=== PATIENT | male | born 1975 ===

== ENCOUNTER 2018-01-11 13:24 | Observation (INO) | payer OTHER ==
[2018-01-11] MEDS ORDERED: DiphenhydrAMINE 50 mg/ml Inj IVP STA (14:06)
--- NOTE | 2018-01-11 14:24 | RAD ---
Date of service: 01/11/2018 HISTORY: chest pain COMPARISON: No prior. TECHNIQUE: Chest PA and lateral FINDINGS: LUNGS: No active pulmonary disease. PLEURA: No significant pleural effusion identified. No pneumothorax apparent. CARDIOVASCULAR: Normal. OSSEOUS STRUCTURES: No significant abnormalities. VISUALIZED UPPER ABDOMEN: Normal. OTHER FINDINGS: None. IMPRESSION: No active disease.
[2018-01-11] MEDS ORDERED: DiphenhydrAMINE 50 mg/ml Inj ONE (14:37)
[2018-01-11 14:43] LABS: BASO % 0.5 % (0.0-2.0); LYMPH # 1.3 K/uL (1.0-4.3); LYMPH % 32.5 % (20.0-40.0); MEAN CELL VOLUME 94.4 fl (80.0-94.0); MEAN CORPUSCULAR HEMOGLOBIN 33.1 pg (27.0-31.0); MEAN PLATELET VOLUME 7.5 fl (7.2-11.7); MONO # 0.4 K/uL (0.0-0.8); NEUT # 2.3 K/uL (1.8-7.0); RBC 4.85 Mil/uL (4.40-5.90); RED CELL DISTRIBUTION WIDTH 12.5 % (11.5-14.5); WHITE BLOOD COUNT 4.1 K/uL (4.8-10.8)
[2018-01-11] MEDS: Sodium Chloride 0.9% 1,000 ML IV SCH ×6 (14:45→22:29)
[2018-01-11 14:51] LABS: INR 1.1; PROTHROMBIN TIME 11.9 Seconds (9.8-13.1)
[2018-01-11 14:54] LABS: PARTIAL THROMBOPLASTIN TIME 34.5 Seconds (25.6-37.1)
[2018-01-11 14:56] LABS: ALB/GLOB RATIO 0.9 (1.0-2.1); ALBUMIN 4.1 g/dL (3.5-5.0); ALT/SGPT 124 U/L (21-72); AST/SGOT 184 U/L (17-59); BLOOD UREA NITROGEN 10 mg/dl (9-20); CALCIUM 7.8 mg/dL (8.4-10.2); GFR NON-AFRICAN AMERICAN > 60; LIPASE 115 U/L (23-300)
--- NOTE | 2018-01-11 15:24 | ED PDOC ---
HPI: Chest Pain Time Seen by Provider: 01/11/18 13:40 Chief Complaint (Nursing): Chest Pain Chief Complaint (Provider): Chest Pain History Per: Patient History/Exam Limitations: no limitations Onset/Duration Of Symptoms: Days (x 1) Current Symptoms Are (Timing): Still Present Quality: Burning, "Pain" Additional Complaint(s): 42 year old male presents to the ED for evaluation of mid sternal burning chest pain, epigastric abdominal pain and persistent hiccups since last night. Patient reports he has been drinking heavily for 2 weeks straight on a daily basis and does not give a specific reason why. His last drink was 2 shots of tequila this morning. A family member found him intoxicated in his home prompting a visit to the ED. He had two episodes of nb nb vomiting prior to arrival. Denies fever, travel, chills, cough/SOB, headache/dizziness, urinary symptoms, and diarrhea. PMD: Dr. Aleman Past Medical History Reviewed: Historical Data, Nursing Documentation, Vital Signs Vital Signs: Last Vital Signs Temp 97.8 F 01/11/18 13:34 Pulse 110 H 01/11/18 13:34 Resp 22 01/11/18 13:34 BP 137/75 01/11/18 13:34 Pulse Ox 100 01/11/18 13:34 - Medical History PMH: HTN (patient denies) - Surgical History Surgical History: No Surg Hx - Family History Family History: States: Unknown Family Hx - Social History Alcohol: > 2 Drinks/Day Drugs: Denies - Home Medications Home Medications: Ambulatory Orders Medication Instructions Recorded RX: Metoprolol Tartrate [Lopressor] 12.5 mg PO BID #28 tab 08/20/14 RX: Omeprazole 40 mg PO DAILY #30 ecc 08/20/14 Dicyclomine [Bentyl] 10 mg PO QID #30 cap 11/09/17 Famotidine [Pepcid] 20 mg PO BID #30 tab 11/09/17 Sucralfate [Carafate] 1 gm PO BID #20 tab 11/09/17 - Allergies Allergies/Adverse Reactions: Allergies Allergy/AdvReac Type Severity Reaction Status Date / Time No Known Allergies Allergy Verified 11/08/17 20:11 Review of Systems ROS Statement: Except As Marked, All Systems Reviewed And Found Negative Constitutional: Negative for: Fever, Chills ENT: Positive for: Other (persistent hiccups) Cardiovascular: Positive for: Chest Pain Respiratory: Negative for: Cough Gastrointestinal: Positive for: Vomiting (x 2 episode nbnb), Abdominal Pain. Negative for: Diarrhea Physical Exam - Reviewed Nursing Documentation Reviewed: Yes Vital Signs Reviewed: Yes - Physical Exam Comments: GENERAL APPEARANCE: Patient is awake, alert, oriented x 3, in no acute distress, odor of alcohol on breath. SKIN: Warm, dry; (-) cyanosis. EYES: (+) bilateral conjunctival injection. ENMT: Mucous membranes moist. Airway patent, (-) stridor. NECK: Supple, FROM (-) tenderness, (-) stiffness CHEST AND RESPIRATORY: (-) rash, (-) chest wall tenderness. Lungs: (-) rales, (-) rhonchi, (-) wheezes, (-) rub; breath sounds equal bilaterally. Respirations even and nonlabored. HEART AND CARDIOVASCULAR: (-) irregularity ABDOMEN AND GI: Soft; (+) RUQ, LUQ and epigastric tenderness,(-) distention, (- ) guarding. EXTREMITIES: (-) deformity; (-) edema, (-) calf tenderness. (+) distal pulses. NEURO AND PSYCH: Mental status as above. Slurred speech. EOMI. (-) facial asymmetry (-) aphasia - Laboratory Results Result Diagrams: 01/11/18 14:40 01/11/18 14:40 - ECG ECG: Positive for: Interpreted By Me, Viewed By Me ECG Rhythm: Positive for: Sinus Tachycardia Interpretation Of ECG: No ST elevation; QTC 458 Rate: 116 O2 Sat by Pulse Oximetry: 100 (RA) Pulse Ox Interpretation: Normal Medical Decision Making Medical Decision Makin:00 Impression: alcohol intoxication and abuse, abdominal pain, vomiting, and hiccups Initial Plan: --VBG --EKG --Alcohol --CMP --CDC --PTT/ INR --UDS --Lipase --Troponin --Urine dip --NS IV --Benadryl 50 mg IVP --Pantoprazole 40 mg IVP --Thorazine 50 mg PO --Toradol 30 mg IVP --Zofran 4 mg IVP 1615 Labs reviewed. CBC grossly unremarkable. No leukocytosis. H&H stable. CMP with slight elevation of LFTs, likely alcohol induced. Troponin and Lipase WNL. Serum Alcohol: 272 Coag profile unremarkable. On re-evaluation, patient sleeping comfortably. HR on monitor: 82. 1730 Lactate: 2.8 on VBG Case discussed with ED MD Levi who is agreeable to current management. Pending clinical sobriety. Patient sleeping in ED stretcher. No distress noted. Vitals stable on monitor. Utox negative. 1845 Repeat HR: 89 Repeat troponin ordered due to patient reporting persistent chest discomfort. Patient still unsteady in ED secondary to ETOH intoxication. Hiccups and nausea resolved. 191 Patient sleeping comfortably in ED. Vitals stable on monitor. 1999 Case endorsed to Che Bright PA-C. Patient pending re-evaluation/repeat troponin, clinical sobriety, final disposition. -- Scribe Attestation: Documented by Mandy Lopez, acting as a scribe for Mac Mcdowell PA-C Provider Scribe Attestation: All medical record entries made by the Scribe were at my direction and pers onally dictated by me. I have reviewed the chart and agree that the record accurately reflects my personal performance of the history, physical exam, medical decision making, and the department course for this patient. I have also personally directed, reviewed, and agree with the discharge instructions and disposition. Disposition - Clinical Impression Clinical Impression: Chest pain, Nausea and vomiting, Abdominal pain, Alcohol intoxication - Patient ED Disposition Is Patient to be Admitted: Transfer of Care (Che Bright PA-C at 1999) - Disposition Disposition: Transfer of Care (Che Bright PA-C at 1999 pending sobriety, repeat troponin, and final disposition.) Disposition Time: 20:00 Condition: STABLE - POA Present On Arrival: None Results - Lab Results Lab Results: 01/11/18 01/11/18 01/11/18 16:36 16:12 14:40 WBC RBC Hgb Hct MCV MCH MCHC RDW Plt Count MPV Neut % (Auto) Lymph % (Auto) [place] % (Auto) Eos % (Auto) Baso % (Auto) Neut # (Auto) Lymph # (Auto) [place] # (Auto) Eos # (Auto) Baso # (Auto) PT 11.9 INR 1.1 APTT 34.5 pO2 52 VBG pH 7.38 VBG pCO2 46 VBG HCO3 25.8 VBG Total CO2 28.6 H VBG O2 Sat (Calc) 87.7 H VBG Base Excess 1.5 VBG Potassium 3.5 L Glucose 95 Lactate 2.8 H FiO2 21.0 Blood Gas Comments Lac=2.8 Crit Value Called To mac Roberson Crit Value Called By 22 Crit Value Read Back Y Blood Gas Notified Time 1645 Sodium 148.0 Potassium Chloride 99.0 Carbon Dioxide Anion Gap BUN Creatinine Est GFR ( Amer) Est GFR (Non-Af Amer) Random Glucose Calcium Total Bilirubin AST ALT Alkaline Phosphatase Troponin I Total Protein Albumin Globulin Albumin/Globulin Ratio Lipase Venous Blood Potassium 3.5 L Urine Opiates Screen Negative Urine Methadone Screen Negative Ur Barbiturates Screen Negative Ur Phencyclidine Scrn Negative Ur Amphetamines Screen Negative U Benzodiazepines Scrn Negative U Oth Cocaine Metabols Negative U Cannabinoids Screen Negative Alcohol, Quantitative 01/11/18 01/11/18 14:40 14:40 WBC 4.1 L RBC 4.85 Hgb 16.0 Hct 45.8 MCV 94.4 H MCH 33.1 H MCHC 35.0 RDW 12.5 Plt Count 89 L MPV 7.5 Neut % (Auto) 57.0 Lymph % (Auto) 32.5 [place] % (Auto) 10.0 Eos % (Auto) 0.0 Baso % (Auto) 0.5 Neut # (Auto) 2.3 Lymph # (Auto) 1.3 [place] # (Auto) 0.4 Eos # (Auto) 0.0 Baso # (Auto) 0.0 PT INR APTT pO2 VBG pH VBG pCO2 VBG HCO3 VBG Total CO2 VBG O2 Sat (Calc) VBG Base Excess VBG Potassium Glucose Lactate FiO2 Blood Gas Comments Crit Value Called To Crit Value Called By Crit Value Read Back Blood Gas Notified Time Sodium 144 Potassium 3.6 Chloride 103 Carbon Dioxide 27 Anion Gap 18 BUN 10 Creatinine 0.5 L Est GFR ( Amer) > 60 Est GFR (Non-Af Amer) > 60 Random Glucose 115 H Calcium 7.8 L Total Bilirubin 0.8 AST 184 H D ALT 124 H Alkaline Phosphatase 125 Troponin I < 0.0120 Total Protein 8.5 H Albumin 4.1 Globulin 4.4 H Albumin/Globulin Ratio 0.9 L Lipase 115 Venous Blood Potassium Urine Opiates Screen Urine Methadone Screen Ur Barbiturates Screen Ur Phencyclidine Scrn Ur Amphetamines Screen U Benzodiazepines Scrn U Oth Cocaine Metabols U Cannabinoids Screen Alcohol, Quantitative 272 H
[2018-01-11 16:35] LABS: BARBITURATES, UR NEGATIVE (NEGATIVE)
[2018-01-11 16:41] LABS: BENZODIAZEPINES, UR NEGATIVE (NEGATIVE); OPIATES, UR NEGATIVE (NEGATIVE); PHENCYCLIDINE, UR NEGATIVE (NEGATIVE)
[2018-01-11 16:46] LABS: VENOUS BLOOD GAS BASE EXCESS 1.5 mmol/L (0.0-2.0); VENOUS BLOOD GAS PCO2 46 mmHg (40-60); VENOUS BLOOD GAS PO2 52 mm/Hg (30-55); VENOUS BLOOD PH 7.38 (7.32-7.43)
--- NOTE | 2018-01-11 18:30 | CARD ---
APPROVED REPORT Date of service: 01/11/2018 EKG Measurement Heart [id number] <Conclusion> Sinus tachycardia Otherwise normal ECG
[2018-01-11] MEDS ORDERED: Sodium Chloride 0.9% 1,000 ML IV STA (21:36)
[2018-01-11] MEDS ORDERED: Multivitamin (MVI) 10 ML, Thiamine 100 MG, Folic Acid 1 MG in Sodium Chloride 0.9% 1,00... IV ONE (21:38)
--- NOTE | 2018-01-11 22:17 | ED PDOC ---
- Laboratory Results Result Diagrams: 01/11/18 14:40 01/11/18 14:40 - ECG O2 Sat by Pulse Oximetry: 99 - Progress ED Course And Treament: patient states he feels persistently unwell with burning sensation to throat. No vomiting noted. Bananabag ordered; ativan 1 mg iv x 1 dose; zofran 4 mg iv x 1 dose REPEAT LACTATE NOTED ELEVATED 3.6 CT ABDOMEN/PELVIS ORDERED: NEG FOR ACUTE ABNORMALITY NS 1 LITER WIDE OPEN REPEAT LACTATE NOTED PERSISTENT 3.6 PATIENT TO BE ADMITTED FOR OBSERVATION FOR LACTID ACIDOSIS/DEHYDRATION Disposition - Clinical Impression Clinical Impression: Chest pain, Nausea and vomiting, Abdominal pain, Alcohol intoxication - POA Present On Arrival: None - Disposition Disposition: Hospitalized as Observation Patient Disposition Time: 03:58 Condition: STABLE
[2018-01-12] MEDS: Sodium Chloride 0.9% 1,000 ML IV SCH ×2 (00:04→16:52)
[2018-01-12 00:11] LABS: VENOUS BLOOD GAS BASE EXCESS -1.3 mmol/L (0.0-2.0); VENOUS BLOOD GAS PCO2 46 mmHg (40-60); VENOUS BLOOD GAS PO2 42 mm/Hg (30-55); VENOUS BLOOD PH 7.34 (7.32-7.43)
[2018-01-12] MEDS ORDERED: Iohexol 300 100 ML IJ ONE (01:28)
[2018-01-12] MEDS ORDERED: Sodium Chloride 0.9% 50 ML IV ONE (01:28)
[2018-01-12] MEDS ORDERED: Sodium Chloride 0.9% 1,000 ML IV STA (02:42)
[2018-01-12 03:06] LABS: VENOUS BLOOD GAS BASE EXCESS 0.8 mmol/L (0.0-2.0); VENOUS BLOOD GAS PCO2 46 mmHg (40-60); VENOUS BLOOD GAS PO2 25 mm/Hg (30-55); VENOUS BLOOD PH 7.37 (7.32-7.43)
[2018-01-12 05:12] LABS: URINE BILIRUBIN NEGATIVE (NEGATIVE); URINE BLOOD NEGATIVE (NEGATIVE); URINE CLARITY CLEAR (Clear); URINE COLOR YELLOW (YELLOW); URINE GLUCOSE (UA) NEG (Normal); URINE LEUKOCYTE ESTERASE NEG Leu/uL (Negative); URINE PROTEIN 30 mg/dL (NEGATIVE); URINE UROBILINOGEN 0.2-1.0 mg/dL (0.2-1.0)
--- NOTE | 2018-01-12 06:34 | CP.PCM.HP ---
History of Present Illness - History of Present Illness History of Present Illness: CC: Epigastric pain, EtOH intoxication HPI: 42 y/o man w/ pmh of alcohol gastritis and HTN presents to the ED w/ burning epigastric pain. Patient unsure when pain started because he reports drinking 1-2 bottles of tequila everyday for the past 2 weeks. Patient reports last drink was 1-2 days ago. Patient reports drinking alone at home and reports that he just started drinking heavily 2 Saturdays ago. Patient denies any changes in life or new stressors. Patient reports associated tension headache, dizziness, acid reflux, nausea, vomiting (x2 non-bloody/non-bilious) but denies diarrhea, dysuria, or fever. Patient denies tactile, auditory, or visual hallucinations. Patient reports prior to 2 weeks ago, he went many months without drinking. Patient has previous admission at [facility] for alcohol intoxication. ED course: vitals: 98 F, 87 beats/min, 123/89 mm Hg, resp 18, O2 99% room air CBC: 4.1>16.0/45.8<89 coags: PT 11.9, INR 1.1, aPTT 34.5 CMP: 144/3.6, 103/27, 10/0.5, glucose 115, AST 184, ALT 124, alk phos 125 troponin: x2 negative VBG: pO2 25, pH 7.37, pCO2 46, HCO3 24.1, lactate 3.6 IVF NS bolus IVF NS @ 500 mL/hr [id number] mg PO once benadryl 50 mg IVP once pepcid 20 mg IV once toradol 30 mg IV once ativan 1 mg IV once zofran 4 mg IV once zofran 4 mg IV once protonix 40 mg IV once PMD: Dr. Aleman PMH: alcohol gastritis and HTN meds: see med list PSH: none Fam: denies SOC: denies smoking and drugs, has Hx of heavy drinking ROS: 12 points assessed and positive findings as stated above in HPI Present on Admission - Present on Admission Any Indicators Present on Admission: No History of DVT/PE: No History of Uncontrolled Diabetes: No Urinary Catheter: No Decubitus Ulcer Present: No Review of Systems - Review of Systems All systems: reviewed and no additional remarkable complaints except - Constitutional Constitutional: Headache. absent: Chills, Fever - EENT Eyes: absent: Change in Vision - Cardiovascular Cardiovascular: As Per HPI, Chest Pain - Respiratory Respiratory: absent: Dyspnea - Gastrointestinal Gastrointestinal: Abdominal Pain, Nausea, Vomiting. absent: Diarrhea, Hematemesis - Genitourinary Genitourinary: absent: Dysuria - Integumentary Integumentary: absent: Rash - Neurological Neurological: Dizziness, Headaches Past Patient History - Infectious Disease Hx of Infectious Diseases: None - Past Medical History & Family History Past Medical History?: Yes - Past Social History Smoking Status: Never Smoked - CARDIAC Hx Hypertension: Yes (not sure) - PULMONARY Hx Respiratory Disorders: No - NEUROLOGICAL Hx Neurological Disorder: No - HEENT Hx HEENT Problems: No - RENAL Hx Chronic Kidney Disease: No - ENDOCRINE/METABOLIC Hx Endocrine Disorders: No - HEMATOLOGICAL/ONCOLOGICAL Hx Blood Disorders: No - INTEGUMENTARY Hx Dermatological Problems: No - MUSCULOSKELETAL/RHEUMATOLOGICAL Hx Musculoskeletal Disorders: No Hx Falls: No - GASTROINTESTINAL Hx Gastrointestinal Disorders: No - GENITOURINARY/GYNECOLOGICAL Hx Genitourinary Disorders: No - PSYCHIATRIC Hx Psychophysiologic Disorder: No Hx Substance Use: No (denies) Other/Comment: DRINKS ALCOHOL - SURGICAL HISTORY Hx Surgeries: Yes Other/Comment: S/P COLONOSCOPY - ANESTHESIA Hx Anesthesia: Yes Hx Anesthesia Reactions: No Hx Malignant Hyperthermia: No Meds Allergies/Adverse Reactions: Allergies Allergy/AdvReac Type Severity Reaction Status Date / Time No Known Allergies Allergy Verified 11/08/17 20:11 Physical Exam - Constitutional Appears: Non-toxic, No Acute Distress - Head Exam Head Exam: ATRAUMATIC, NORMAL INSPECTION, NORMOCEPHALIC - Eye Exam Eye Exam: Normal appearance - ENT Exam ENT Exam: Mucous Membranes Dry - Neck Exam Neck exam: Positive for: Full Rom. Negative for: Tenderness - Respiratory Exam Respiratory Exam: Clear to Auscultation Bilateral. absent: Accessory Muscle Use, Decreased Breath Sounds, Rales, Rhonchi, Wheezes, Respiratory Distress - Cardiovascular Exam Cardiovascular Exam: REGULAR RHYTHM, RRR. absent: Tachycardia - GI/Abdominal Exam GI & Abdominal Exam: Normal Bowel Sounds, Soft, Tenderness (epigastric). absent: Distended - Extremities Exam Extremities exam: Negative for: calf tenderness, pedal edema, tenderness - Neurological Exam Neurological exam: Alert, Oriented x3 - Skin Skin Exam: Dry, Intact, Normal Color, Warm Results - Vital Signs Recent Vital Signs: Last Vital Signs Temp 98 F 01/11/18 22:30 Pulse 87 09/28/18 22:30 Resp 18 01/11/18 22:30 BP 123/89 01/11/18 22:30 Pulse Ox 99 01/12/18 04:14 - Labs Result Diagrams: 01/11/18 14:40 01/11/18 14:40 Labs: Laboratory Results - last 24 hr 01/11/18 01/11/18 01/11/18 14:40 14:40 14:40 WBC 4.1 L RBC 4.85 Hgb 16.0 Hct 45.8 MCV 94.4 H MCH 33.1 H MCHC 35.0 RDW 12.5 Plt Count 89 L MPV 7.5 Neut % (Auto) 57.0 Lymph % (Auto) 32.5 [place] % (Auto) 10.0 Eos % (Auto) 0.0 Baso % (Auto) 0.5 Neut # (Auto) 2.3 Lymph # (Auto) 1.3 [place] # (Auto) 0.4 Eos # (Auto) 0.0 Baso # (Auto) 0.0 PT 11.9 INR 1.1 APTT 34.5 pO2 VBG pH VBG pCO2 VBG HCO3 VBG Total CO2 VBG O2 Sat (Calc) VBG Base Excess VBG Potassium Glucose Lactate FiO2 Blood Gas Comments Crit Value Called To Crit Value Called By Crit Value Read Back Blood Gas Notified Time Sodium 144 Potassium 3.6 Chloride 103 Carbon Dioxide 27 Anion Gap 18 BUN 10 Creatinine 0.5 L Est GFR ( Amer) > 60 Est GFR (Non-Af Amer) > 60 Random Glucose 115 H Calcium 7.8 L Magnesium Total Bilirubin 0.8 AST 184 H D ALT 124 H Alkaline Phosphatase 125 Troponin I < 0.0120 Total Protein 8.5 H Albumin 4.1 Globulin 4.4 H Albumin/Globulin Ratio 0.9 L Lipase 115 Venous Blood Potassium Urine Color Urine Clarity Urine pH Ur Specific [place] Urine Protein Urine Glucose (UA) Urine Ketones Urine Blood Urine Nitrate Urine Bilirubin Urine Urobilinogen Ur Leukocyte Esterase Urine RBC (Auto) Urine Microscopic WBC Hyaline Casts Urine Opiates Screen Urine Methadone Screen Ur Barbiturates Screen Ur Phencyclidine Scrn Ur Amphetamines Screen U Benzodiazepines Scrn U Oth Cocaine Metabols U Cannabinoids Screen Alcohol, Quantitative 272 H 09/28/18 09/28/18 09/28/18 16:12 16:36 20:11 WBC RBC Hgb Hct MCV MCH MCHC RDW Plt Count MPV Neut % (Auto) Lymph % (Auto) [place] % (Auto) Eos % (Auto) Baso % (Auto) Neut # (Auto) Lymph # (Auto) [place] # (Auto) Eos # (Auto) Baso # (Auto) PT INR APTT pO2 52 VBG pH 7.38 VBG pCO2 46 VBG HCO3 25.8 VBG Total CO2 28.6 H VBG O2 Sat (Calc) 87.7 H VBG Base Excess 1.5 VBG Potassium 3.5 L Glucose 95 Lactate 2.8 H FiO2 21.0 Blood Gas Comments Lac=2.8 Crit Value Called To Rpa.mac mccormick Crit Value Called By 22 Crit Value Read Back Y Blood Gas Notified Time 1645 Sodium 148.0 Potassium Chloride 99.0 Carbon Dioxide Anion Gap BUN Creatinine Est GFR ( Amer) Est GFR (Non-Af Amer) Random Glucose Calcium Magnesium Total Bilirubin AST ALT Alkaline Phosphatase Troponin I < 0.0120 Total Protein Albumin Globulin Albumin/Globulin Ratio Lipase Venous Blood Potassium 3.5 L Urine Color Urine Clarity Urine pH Ur Specific [place] Urine Protein Urine Glucose (UA) Urine Ketones Urine Blood Urine Nitrate Urine Bilirubin Urine Urobilinogen Ur Leukocyte Esterase Urine RBC (Auto) Urine Microscopic WBC Hyaline Casts Urine Opiates Screen Negative Urine Methadone Screen Negative Ur Barbiturates Screen Negative Ur Phencyclidine Scrn Negative Ur Amphetamines Screen Negative U Benzodiazepines Scrn Negative U Oth Cocaine Metabols Negative U Cannabinoids Screen Negative Alcohol, Quantitative 01/12/18 01/12/18 01/12/18 00:02 00:04 03:00 WBC RBC Hgb Hct MCV MCH MCHC RDW Plt Count MPV Neut % (Auto) Lymph % (Auto) [place] % (Auto) Eos % (Auto) Baso % (Auto) Neut # (Auto) Lymph # (Auto) [place] # (Auto) Eos # (Auto) Baso # (Auto) PT INR APTT pO2 42 25 L VBG pH 7.34 7.37 VBG pCO2 46 46 VBG HCO3 23.3 24.1 VBG Total CO2 26.2 28.0 VBG O2 Sat (Calc) 43.1 VBG Base Excess -1.3 L 0.8 VBG Potassium 3.7 3.3 L Glucose 97 83 Lactate 3.6 H 3.6 H FiO2 21.0 21.0 Blood Gas Comments Crit Value Called To Crit Value Called By Crit Value Read Back Blood Gas Notified Time Sodium 146.0 140.0 Potassium Chloride 97.0 L 101.0 Carbon Dioxide Anion Gap BUN Creatinine Est GFR ( Amer) Est GFR (Non-Af Amer) Random Glucose Calcium Magnesium 1.6 Total Bilirubin AST ALT Alkaline Phosphatase Troponin I Total Protein Albumin Globulin Albumin/Globulin Ratio Lipase Venous Blood Potassium 3.7 3.3 L Urine Color Urine Clarity Urine pH Ur Specific [place] Urine Protein Urine Glucose (UA) Urine Ketones Urine Blood Urine Nitrate Urine Bilirubin Urine Urobilinogen Ur Leukocyte Esterase Urine RBC (Auto) Urine Microscopic WBC Hyaline Casts Urine Opiates Screen Urine Methadone Screen Ur Barbiturates Screen Ur Phencyclidine Scrn Ur Amphetamines Screen U Benzodiazepines Scrn U Oth Cocaine Metabols U Cannabinoids Screen Alcohol, Quantitative 01/12/18 04:56 WBC RBC Hgb Hct MCV MCH MCHC RDW Plt Count MPV Neut % (Auto) Lymph % (Auto) [place] % (Auto) Eos % (Auto) Baso % (Auto) Neut # (Auto) Lymph # (Auto) [place] # (Auto) Eos # (Auto) Baso # (Auto) PT INR APTT pO2 VBG pH VBG pCO2 VBG HCO3 VBG Total CO2 VBG O2 Sat (Calc) VBG Base Excess VBG Potassium Glucose Lactate FiO2 Blood Gas Comments Crit Value Called To Crit Value Called By Crit Value Read Back Blood Gas Notified Time Sodium Potassium Chloride Carbon Dioxide Anion Gap BUN Creatinine Est GFR ( Amer) Est GFR (Non-Af Amer) Random Glucose Calcium Magnesium Total Bilirubin AST ALT Alkaline Phosphatase Troponin I Total Protein Albumin Globulin Albumin/Globulin Ratio Lipase Venous Blood Potassium Urine Color Yellow Urine Clarity Clear Urine pH 7.0 Ur Specific [place] 1.031 H Urine Protein 30 Urine Glucose (UA) Neg Urine Ketones 20 Urine Blood Negative Urine Nitrate Negative Urine Bilirubin Negative Urine Urobilinogen 0.2-1.0 Ur Leukocyte Esterase Neg Urine RBC (Auto) 2 Urine Microscopic WBC 2 Hyaline Casts 3-5 H Urine Opiates Screen Urine Methadone Screen Ur Barbiturates Screen Ur Phencyclidine Scrn Ur Amphetamines Screen U Benzodiazepines Scrn U Oth Cocaine Metabols U Cannabinoids Screen Alcohol, Quantitative Assessment & Plan - Assessment and Plan (Free Text) Assessment: 42 y/o man w/ pmh of alcohol gastritis and HTN presents to the ED w/ burning epigastric pain Plan: Alcohol Withdrawal - current CIWA score 6 - patient reports last drink was 1-2 days ago - vital signs stable - CBC: 4.1>16.0/45.8<89 - coags: PT 11.9, INR 1.1, aPTT 34.5 - CMP: 144/3.6, 103/27, 10/0.5, glucose 115, AST 184, ALT 124, alk phos 125 - troponin: x2 negative - VBG: pO2 25, pH 7.37, pCO2 46, HCO3 24.1, lactate 3.6 - IVF NS bolus - IVF NS @ 500 mL/hr - mg PO once - benadryl 50 mg IVP once - pepcid 20 mg IV once - toradol 30 mg IV once - ativan 1 mg IV once - zofran 4 mg IV once - zofran 4 mg IV once - protonix 40 mg IV once - EKG: sinus tachycardia - CXR: no active disease - CT abdomen/pelvis: pending - librium 5 mg PO Q8h - D5 1/2NS w/ MV,VitB1, folic acid @ 125 mL/hr - Zofran 4 mg IV Q6h prn - protonix 40 mg PO daily - sucralfate 1 gm PO BID Alcohol Gastritis - Hx of gastritis - Zofran 4 mg IV Q6h prn - protonix 40 mg PO daily - sucralfate 1 gm PO BID HTN - BP stable - lopressor, on hold for now BP stable Prophylactic measures: - DVT: SCDs
[2018-01-12] MEDS ORDERED: Potassium Chloride 20 mEq ER Tab PO ONE ×2 (06:51→07:05)
[2018-01-12] MEDS: Multivitamin (MVI) 10 ML, Thiamine 100 MG, Folic Acid 1 MG in Dextrose 5%/0.45% NS 1,00... IV SCH ×2 (08:18→14:27)
[2018-01-12] MEDS ORDERED: Enoxaparin 40 mg Syringe SC SCH (09:00)
[2018-01-12] MEDS ORDERED: Pantoprazole 40 mg EC Tab PO ONE (09:13)
[2018-01-12] MEDS: Pantoprazole 40 mg EC Tab PO SCH (09:16)
--- NOTE | 2018-01-12 11:24 | CT ---
Date of service: 01/12/2018 PROCEDURE: CT Abdomen and Pelvis with contrast HISTORY: abd pain COMPARISON: None. TECHNIQUE: Contrast dose: 95 mL Omnipaque 300 Radiation dose: Total exam DLP = 936.8 mGy-cm. This CT exam was performed using one or more of the following dose reduction techniques: Automated exposure control, adjustment of the mA and/or kV according to patient size, and/or use of iterative reconstruction technique. FINDINGS: LOWER THORAX: Cardiomegaly. Dependent bibasilar atelectasis. LIVER: Diffuse hepatic steatosis. No gross lesion or ductal dilatation. GALLBLADDER AND BILE DUCTS: Unremarkable. PANCREAS: Unremarkable. No gross lesion or ductal dilatation. SPLEEN: Unremarkable. ADRENALS: Unremarkable. No mass. KIDNEYS AND URETERS: Unremarkable. No hydronephrosis. No solid mass. VASCULATURE: Unremarkable. No aortic aneurysm. BOWEL: Unremarkable. Diffuse submucosal fat in the colon and terminal ileum. No obstruction. No gross mural thickening. APPENDIX: Normal appendix. PERITONEUM: Small fat containing umbilical hernia. Small bilateral fat containing inguinal hernias. No free fluid. No free air. LYMPH NODES: Unremarkable. No enlarged lymph nodes. BLADDER: Unremarkable. REPRODUCTIVE: Unremarkable. BONES: No acute fracture. OTHER FINDINGS: None. IMPRESSION: Hepatomegaly with steatosis. No acute abdominal pelvic pathology. Prominent submucosal fat involving the colon and terminal ileum can be seen in the setting of inflammatory bowel disease. Clinical correlation is recommended.
[2018-01-13] MEDS: Sodium Chloride 0.9% 1,000 ML IV SCH ×2 (01:11→09:16)
[2018-01-13] MEDS ORDERED: Alum-Mag Hydrox-Simethicone Susp (30 mL) PO ONE (04:38)
[2018-01-13 07:08] LABS: HEMOGLOBIN 14.2 g/dL (12.0-18.0); MEAN CELL VOLUME 95.8 fl (80.0-94.0); MEAN CORPUSCULAR HEMOGLOBIN 33.5 pg (27.0-31.0); RBC 4.24 Mil/uL (4.40-5.90); RED CELL DISTRIBUTION WIDTH 12.4 % (11.5-14.5); WHITE BLOOD COUNT 2.6 K/uL (4.8-10.8)
[2018-01-13 08:15] LABS: ALB/GLOB RATIO 0.9 (1.0-2.1); ALBUMIN 3.5 g/dL (3.5-5.0); ALT/SGPT 112 U/L (21-72); AST/SGOT 189 U/L (17-59); BLOOD UREA NITROGEN 6 mg/dl (9-20); GFR NON-AFRICAN AMERICAN > 60
[2018-01-13] MEDS ORDERED: Potassium Chloride 20 mEq ER Tab PO ONE (08:44)
--- NOTE | 2018-01-13 08:46 | CP.PCM.DIS ---
<Yesy Ortiz - Last Filed: 01/13/18 11:10> Provider - Provider Date of Admission: 01/12/18 03:58 Attending physician: Marivel Medrano DO Primary care physician: SHELLIE Time Spent in preparation of Discharge (in minutes): 30 Diagnosis - Discharge Diagnosis (1) Alcohol withdrawal Status: Acute (2) Alcoholic gastritis Status: Acute (3) HTN (hypertension) Status: Acute Hospital Course - Lab Results Lab Results: Most Recent Lab Values WBC 2.6 K/uL (4.8-10.8) L 01/13/18 06:04 RBC 4.24 Mil/uL (4.40-5.90) L 01/13/18 06:04 Hgb 14.2 g/dL (12.0-18.0) 01/13/18 06:04 Hct 40.6 % (35.0-51.0) 01/13/18 06:04 MCV 95.8 fl (80.0-94.0) H 01/13/18 06:04 MCH 33.5 pg (27.0-31.0) H 01/13/18 06:04 MCHC 35.0 g/dL (33.0-37.0) 01/13/18 06:04 RDW 12.4 % (11.5-14.5) 01/13/18 06:04 Plt Count 61 K/uL (130-400) L D 01/13/18 06:04 MPV 7.5 fl (7.2-11.7) 01/11/18 14:40 Neut % (Auto) 57.0 % (50.0-75.0) 01/11/18 14:40 Lymph % (Auto) 32.5 % (20.0-40.0) 01/11/18 14:40 [place] % (Auto) 10.0 % (0.0-10.0) 01/11/18 14:40 Eos % (Auto) 0.0 % (0.0-4.0) 01/11/18 14:40 Baso % (Auto) 0.5 % (0.0-2.0) 01/11/18 14:40 Neut # (Auto) 2.3 K/uL (1.8-7.0) 01/11/18 14:40 Lymph # (Auto) 1.3 K/uL (1.0-4.3) 01/11/18 14:40 [place] # (Auto) 0.4 K/uL (0.0-0.8) 01/11/18 14:40 Eos # (Auto) 0.0 K/uL (0.0-0.7) 01/11/18 14:40 Baso # (Auto) 0.0 K/uL (0.0-0.2) 01/11/18 14:40 PT 11.9 Seconds (9.8-13.1) 01/11/18 14:40 INR 1.1 01/11/18 14:40 APTT 34.5 Seconds (25.6-37.1) 01/11/18 14:40 pO2 25 mm/Hg (30-55) L 01/12/18 03:00 VBG pH 7.37 (7.32-7.43) 01/12/18 03:00 VBG pCO2 46 mmHg (40-60) 01/12/18 03:00 VBG HCO3 24.1 mmol/L 01/12/18 03:00 VBG Total CO2 28.0 mmol/L (22-28) 01/12/18 03:00 VBG O2 Sat (Calc) 43.1 % (40-65) 01/12/18 03:00 VBG Base Excess 0.8 mmol/L (0.0-2.0) 01/12/18 03:00 VBG Potassium 3.3 mmol/L (3.6-5.2) L 01/12/18 03:00 Sodium 140.0 mmol/L (132-148) 01/12/18 03:00 Chloride 101.0 mmol/L (98-107) 01/12/18 03:00 Glucose 83 mg/dL (75-110) 01/12/18 03:00 Lactate 3.6 mmol/L (0.7-2.1) H 01/12/18 03:00 FiO2 21.0 % 01/12/18 03:00 Blood Gas Comments Lac=2.8 01/11/18 16:36 Crit Value Called To mac Roberson 01/11/18 16:36 Crit Value Called By 22 01/11/18 16:36 Crit Value Read Back Y 01/11/18 16:36 Blood Gas Notified Time 1645 01/11/18 16:36 Sodium 139 mmol/l (132-148) 01/13/18 06:04 Potassium 3.1 MMOL/L (3.6-5.0) L 01/13/18 06:04 Chloride 101 mmol/L (98-107) 01/13/18 06:04 Carbon Dioxide 32 mmol/L (22-30) H 01/13/18 06:04 Anion Gap 9 (10-20) L 01/13/18 06:04 BUN 6 mg/dl (9-20) L 01/13/18 06:04 Creatinine 0.6 mg/dl (0.8-1.5) L 01/13/18 06:04 Est GFR ( Amer) > 60 01/13/18 06:04 Est GFR (Non-Af Amer) > 60 01/13/18 06:04 Random Glucose 88 mg/dL (75-110) 01/13/18 06:04 Calcium 8.0 mg/dL (8.4-10.2) L 01/13/18 06:04 Phosphorus 1.9 mg/dl (2.5-4.5) L 01/13/18 06:04 Magnesium 1.7 MG/DL (1.6-2.3) 01/13/18 06:04 Total Bilirubin 1.8 mg/dl (0.2-1.3) H 01/13/18 06:04 AST 189 U/L (17-59) H 01/13/18 06:04 ALT 112 U/L (21-72) H 01/13/18 06:04 Alkaline Phosphatase 97 U/L (38-126) 01/13/18 06:04 Troponin I < 0.0120 ng/mL (0.00-0.120) 01/12/18 11:39 Total Protein 7.3 G/DL (6.3-8.2) 01/13/18 06:04 Albumin 3.5 g/dL (3.5-5.0) 01/13/18 06:04 Globulin 3.9 gm/dL (2.2-3.9) 01/13/18 06:04 Albumin/Globulin Ratio 0.9 (1.0-2.1) L 01/13/18 06:04 Lipase 115 U/L (23-300) 01/11/18 14:40 Venous Blood Potassium 3.3 mmol/L (3.6-5.2) L 01/12/18 03:00 Urine Color Yellow (YELLOW) 01/12/18 04:56 Urine Clarity Clear (Clear) 01/12/18 04:56 Urine pH 7.0 (5.0-8.0) 01/12/18 04:56 Ur Specific [place] 1.031 (1.003-1.030) H 01/12/18 04:56 Urine Protein 30 mg/dL (NEGATIVE) 01/12/18 04:56 Urine Glucose (UA) Neg mg/dL (Normal) 01/12/18 04:56 Urine Ketones 20 mg/dL (NEGATIVE) 01/12/18 04:56 Urine Blood Negative (NEGATIVE) 01/12/18 04:56 Urine Nitrate Negative (NEGATIVE) 01/12/18 04:56 Urine Bilirubin Negative (NEGATIVE) 01/12/18 04:56 Urine Urobilinogen 0.2-1.0 mg/dL (0.2-1.0) 01/12/18 04:56 Ur Leukocyte Esterase Neg [place]/uL (Negative) 01/12/18 04:56 Urine RBC (Auto) 2 /hpf (0-3) 01/12/18 04:56 Urine Microscopic WBC 2 /hpf (0-5) 01/12/18 04:56 Hyaline Casts 3-5 /hpf (0-2) H 01/12/18 04:56 Urine Opiates Screen Negative (NEGATIVE) 01/11/18 16:12 Urine Methadone Screen Negative (NEGATIVE) 01/11/18 16:12 Ur Barbiturates Screen Negative (NEGATIVE) 01/11/18 16:12 Ur Phencyclidine Scrn Negative (NEGATIVE) 01/11/18 16:12 Ur Amphetamines Screen Negative (NEGATIVE) 01/11/18 16:12 U Benzodiazepines Scrn Negative (NEGATIVE) 01/11/18 16:12 U Oth Cocaine Metabols Negative (NEGATIVE) 01/11/18 16:12 U Cannabinoids Screen Negative (NEGATIVE) 01/11/18 16:12 Alcohol, Quantitative 272 mg/dl (0-10) H 01/11/18 14:40 - Hospital Course Hospital Course: 42 y/o man w/ pmh of alcohol gastritis and HTN presents to the ED w/ burning epigastric pain. Patient unsure when pain started because he reports drinking 1-2 bottles of tequila everyday for the past 2 weeks. Patient reports last drink was 1-2 days ago. Patient reports drinking alone at home and reports that he just started drinking heavily 2 Saturdays ago. Patient denies any changes in life or new stressors. Patient reports associated tension headache, dizziness, acid reflux, nausea, vomiting (x2 non-bloody/non-bilious) but denies diarrhea, dysuria, or fever. Patient denies tactile, auditory, or visual hallucinations. Patient reports prior to 2 weeks ago, he went many months without drinking. Patient has previous admission at [facility] for alcohol intoxication. PMD: Dr. Aleman PMH: alcohol gastritis and HTN; PSH: none; Fam history: denies SOC: denies smoking and drugs, has Hx of heavy drinking ED course: vitals: 98 F, 87 beats/min, 123/89 mm Hg, resp 18, O2 99% room air CBC: 4.1>16.0/45.8<89 ; coags: PT 11.9, INR 1.1, aPTT 34.5 ; CMP: 144/3.6, 103/27, 10/0.5, glucose 115, AST 184, ALT 124, alk phos 125 troponin: x3 negative VBG: pO2 25, pH 7.37, pCO2 46, HCO3 24.1, lactate 3.6 Fluids and medications given: IVF NS bolus; IVF NS @ 500 mL/hr; [id number] mg PO once; benadryl 50 mg IVP once; pepcid 20 mg IV once; toradol 30 mg IV once; ativan 1 mg IV once; zofran 4 mg IV once; zofran 4 mg IV once; protonix 40 mg IV once Floor course: Patient was admitted to telemetry. He was maintained on Librium tapering dose. Patient was repleted with potassium chloride PO. He was vitally stable throughout his course on the floor. Patients withdrawal symptoms lessened on the floor and it was witness that he had stable gait. Patient stable for discharge with a script for librium. Patient was extensively counseled on his alcohol intake. Discharge Exam - Head Exam Head Exam: ATRAUMATIC, NORMAL INSPECTION, NORMOCEPHALIC - Eye Exam Eye Exam: Normal appearance - ENT Exam ENT Exam: Mucous Membranes Moist - Respiratory Exam Respiratory Exam: Clear to PA & Lateral, NORMAL BREATHING PATTERN, UNREMARKABLE. absent: Rales, Rhonchi, Wheezes, Respiratory Distress - Cardiovascular Exam Cardiovascular Exam: REGULAR RHYTHM, RRR, +S1, +S2. absent: Clicks, Diastolic murmur, Irregular Rhythm, JVD, Rubs, +S4, Systolic Murmur - GI/Abdominal Exam GI & Abdominal Exam: Normal Bowel Sounds, Soft. absent: Distended, Firm, Guarding, Mass, Rebound, Rigid, Tenderness - Rectal Exam Rectal Exam: Deferred - Extremities Exam Extremities exam: pedal pulses present Additional comments: + normal gait. - Neurological Exam Neurological exam: Alert, Normal Gait, Oriented x3 - Psychiatric Exam Psychiatric exam: Normal Affect - Skin Skin Exam: Dry, Intact, Normal Color, Warm Discharge Plan - Discharge Medications Prescriptions: chlordiazePOXIDE [Chlordiazepoxide HCl] 5 mg PO ASDIR #14 cap - Follow Up Plan Condition: STABLE Disposition: HOME/ ROUTINE Instructions: Dehydration, Adult (DC), Alcohol Withdrawal (DC), Acute Abdominal Pain (DC), Acute Abdominal Pain (GEN) Additional Instructions: Follow up at [facility] clinic within 1 week. Prescription for Librium 5mg tapering dose given to patient. Referrals: [facility] [Outside] <Samia Mars - Last Filed: 01/13/18 16:09> Provider - Provider Date of Admission: 01/12/18 03:58 Attending physician: Marivel Medrano, Hospital Course - Lab Results Lab Results: Most Recent Lab Values WBC 2.6 K/uL (4.8-10.8) L 01/13/18 06:04 RBC 4.24 Mil/uL (4.40-5.90) L 01/13/18 06:04 Hgb 14.2 g/dL (12.0-18.0) 01/13/18 06:04 Hct 40.6 % (35.0-51.0) 01/13/18 06:04 MCV 95.8 fl (80.0-94.0) H 01/13/18 06:04 MCH 33.5 pg (27.0-31.0) H 01/13/18 06:04 MCHC 35.0 g/dL (33.0-37.0) 01/13/18 06:04 RDW 12.4 % (11.5-14.5) 01/13/18 06:04 Plt Count 61 K/uL (130-400) L D 01/13/18 06:04 MPV 7.5 fl (7.2-11.7) 01/11/18 14:40 Neut % (Auto) 57.0 % (50.0-75.0) 01/11/18 14:40 Lymph % (Auto) 32.5 % (20.0-40.0) 01/11/18 14:40 [place] % (Auto) 10.0 % (0.0-10.0) 01/11/18 14:40 Eos % (Auto) 0.0 % (0.0-4.0) 01/11/18 14:40 Baso % (Auto) 0.5 % (0.0-2.0) 01/11/18 14:40 Neut # (Auto) 2.3 K/uL (1.8-7.0) 01/11/18 14:40 Lymph # (Auto) 1.3 K/uL (1.0-4.3) 01/11/18 14:40 [place] # (Auto) 0.4 K/uL (0.0-0.8) 01/11/18 14:40 Eos # (Auto) 0.0 K/uL (0.0-0.7) 01/11/18 14:40 Baso # (Auto) 0.0 K/uL (0.0-0.2) 01/11/18 14:40 PT 11.9 Seconds (9.8-13.1) 01/11/18 14:40 INR 1.1 01/11/18 14:40 APTT 34.5 Seconds (25.6-37.1) 01/11/18 14:40 pO2 25 mm/Hg (30-55) L 01/12/18 03:00 VBG pH 7.37 (7.32-7.43) 01/12/18 03:00 VBG pCO2 46 mmHg (40-60) 01/12/18 03:00 VBG HCO3 24.1 mmol/L 01/12/18 03:00 VBG Total CO2 28.0 mmol/L (22-28) 01/12/18 03:00 VBG O2 Sat (Calc) 43.1 % (40-65) 01/12/18 03:00 VBG Base Excess 0.8 mmol/L (0.0-2.0) 01/12/18 03:00 VBG Potassium 3.3 mmol/L (3.6-5.2) L 01/12/18 03:00 Sodium 140.0 mmol/L (132-148) 01/12/18 03:00 Chloride 101.0 mmol/L (98-107) 01/12/18 03:00 Glucose 83 mg/dL (75-110) 01/12/18 03:00 Lactate 3.6 mmol/L (0.7-2.1) H 01/12/18 03:00 FiO2 21.0 % 01/12/18 03:00 Blood Gas Comments Lac=2.8 01/11/18 16:36 Crit Value Called To mac Roberson 01/11/18 16:36 Crit Value Called By 22 01/11/18 16:36 Crit Value Read Back Y 01/11/18 16:36 Blood Gas Notified Time 1645 01/11/18 16:36 Sodium 139 mmol/l (132-148) 01/13/18 06:04 Potassium 3.1 MMOL/L (3.6-5.0) L 01/13/18 06:04 Chloride 101 mmol/L (98-107) 01/13/18 06:04 Carbon Dioxide 32 mmol/L (22-30) H 01/13/18 06:04 Anion Gap 9 (10-20) L 01/13/18 06:04 BUN 6 mg/dl (9-20) L 01/13/18 06:04 Creatinine 0.6 mg/dl (0.8-1.5) L 01/13/18 06:04 Est GFR ( Amer) > 60 01/13/18 06:04 Est GFR (Non-Af Amer) > 60 01/13/18 06:04 Random Glucose 88 mg/dL (75-110) 01/13/18 06:04 Calcium 8.0 mg/dL (8.4-10.2) L 01/13/18 06:04 Phosphorus 1.9 mg/dl (2.5-4.5) L 01/13/18 06:04 Magnesium 1.7 MG/DL (1.6-2.3) 01/13/18 06:04 Total Bilirubin 1.8 mg/dl (0.2-1.3) H 01/13/18 06:04 AST 189 U/L (17-59) H 01/13/18 06:04 ALT 112 U/L (21-72) H 01/13/18 06:04 Alkaline Phosphatase 97 U/L (38-126) 01/13/18 06:04 Troponin I < 0.0120 ng/mL (0.00-0.120) 01/12/18 11:39 Total Protein 7.3 G/DL (6.3-8.2) 01/13/18 06:04 Albumin 3.5 g/dL (3.5-5.0) 01/13/18 06:04 Globulin 3.9 gm/dL (2.2-3.9) 01/13/18 06:04 Albumin/Globulin Ratio 0.9 (1.0-2.1) L 01/13/18 06:04 Lipase 115 U/L (23-300) 01/11/18 14:40 Venous Blood Potassium 3.3 mmol/L (3.6-5.2) L 01/12/18 03:00 Urine Color Yellow (YELLOW) 01/12/18 04:56 Urine Clarity Clear (Clear) 01/12/18 04:56 Urine pH 7.0 (5.0-8.0) 01/12/18 04:56 Ur Specific [place] 1.031 (1.003-1.030) H 01/12/18 04:56 Urine Protein 30 mg/dL (NEGATIVE) 01/12/18 04:56 Urine Glucose (UA) Neg mg/dL (Normal) 01/12/18 04:56 Urine Ketones 20 mg/dL (NEGATIVE) 01/12/18 04:56 Urine Blood Negative (NEGATIVE) 01/12/18 04:56 Urine Nitrate Negative (NEGATIVE) 01/12/18 04:56 Urine Bilirubin Negative (NEGATIVE) 01/12/18 04:56 Urine Urobilinogen 0.2-1.0 mg/dL (0.2-1.0) 01/12/18 04:56 Ur Leukocyte Esterase Neg [place]/uL (Negative) 01/12/18 04:56 Urine RBC (Auto) 2 /hpf (0-3) 01/12/18 04:56 Urine Microscopic WBC 2 /hpf (0-5) 01/12/18 04:56 Hyaline Casts 3-5 /hpf (0-2) H 01/12/18 04:56 Urine Opiates Screen Negative (NEGATIVE) 01/11/18 16:12 Urine Methadone Screen Negative (NEGATIVE) 01/11/18 16:12 Ur Barbiturates Screen Negative (NEGATIVE) 01/11/18 16:12 Ur Phencyclidine Scrn Negative (NEGATIVE) 01/11/18 16:12 Ur Amphetamines Screen Negative (NEGATIVE) 01/11/18 16:12 U Benzodiazepines Scrn Negative (NEGATIVE) 01/11/18 16:12 U Oth Cocaine Metabols Negative (NEGATIVE) 01/11/18 16:12 U Cannabinoids Screen Negative (NEGATIVE) 01/11/18 16:12 Alcohol, Quantitative 272 mg/dl (0-10) H 01/11/18 14:40 Attending/Attestation - Attestation I have personally seen and examined this patient.: Yes I have fully participated in the care of the patient.: Yes I have reviewed all pertinent clinical information, including history, physical exam and plan: Yes Notes (Text): Patient had no signs of alcohol withdrawal. Ambulating in his room and to the bathroom. Gait stable, No tremors noted. Epigastric pain resolved. Counseled patient to d/c Alcohol Given info regarding AA.
[2018-01-13] MEDS: Pantoprazole 40 mg EC Tab PO SCH (09:01)
[2018-01-13 09:54] VITALS: BP 142/84; PULSE 96; RESP 20; TEMP 98.2; O2SAT 98
== END 2018-01-13 10:26 | disposition home or self-care (01) ==
LOC: H.ER 13:24 → H.ERHOLD 01-12 03:58 → H.TEL 01-12 09:50
PROVIDERS: ADMIT Student in an Organized Health Care Education/Training Program; ATTEND Student in an Organized Health Care Education/Training Program
DX: F10.239 Alcohol dependence with withdrawal, unspecified (principal); F10.229 Alcohol dependence with intoxication, unspecified; K29.20 Alcoholic gastritis without bleeding; G44.209 Tension-type headache, unspecified, not intractable; I10 Essential (primary) hypertension; Y90.8 Blood alcohol level of 240 mg/100 ml or more; Z71.41 Alcohol abuse counseling and surveillance of alcoholic; K21.9 Gastro-esophageal reflux disease without esophagitis; R06.6 Hiccough
CPT/HCPCS: 36415; 71046; 74177; 80053; 80320; 80324; 80345; 80346; 80349; 80353; 80358; 80361; 81003; 82803; 83690; 83735; 83992; 84100; 84484; 85025; 85027; 85610; 85730; 93005; 96361; 96365; 96366; 96375; 96376; 99285; C9113; G0378; J1200; J1885; J2060; J2405; J3411; J7030; J7042; Q0161; Q9967